=== PATIENT | female | born 1935 | race Caucasian/White ===

== ENCOUNTER → 2022-01-09 | Outpatient (CLI) | payer MEDICARE, OTHER | LOC: M LABSMTC 09:34 | PROVIDERS: ATTEND Anesthesiology | DX: Z01.818 Encounter for other preprocedural examination (principal); Z11.52 Encounter for screening for COVID-19 ==

== ENCOUNTER 2022-01-12 06:00 | Day surgery (SDC) | payer MEDICARE, OTHER ==
[~2022-01-12] VITALS: Ht 152.4 cm; Wt 43.9 kg
[~2022-01-12 06:00] MED LIST: CYCLOPENTOLATE 1% OPHTH SOLN 2 ML BTL OD SCH; FLURBIPROFEN 0.03% OPHTH SOLN 2.5 ML OD SCH; PHENYLEPHRINE 2.5% OPHTH SOL 2ML OD SCH; TETRACAINE 0.5% OPHTH SOLN 4ML OD SCH
[2022-01-12] MEDS ORDERED: MAXITROL OPHTH SUSP 5 ML As Ordered ONE (06:29)
[2022-01-12] MEDS ORDERED: LIDOCAINE 1% SDV 5ML VIAL As Ordered ONE (06:29)
[2022-01-12] MEDS ORDERED: LR 1,000 ML IV SCH (07:00)
[2022-01-12] MEDS ORDERED: fentaNYL 100 MCG/2 ML INJECTION As Ordered ONE (08:20)
[2022-01-12] MEDS ORDERED: MIDAZOLAM INJ 2MG/2ML VIAL (J2250 PER 1MG) As Ordered ONE (08:20)
[2022-01-12 09:06] VITALS: BP 161/65
== END 2022-01-12 09:26 | disposition home or self-care (01) ==
LOC: M SDC 06:00
PROVIDERS: ATTEND Ophthalmology
DX: H25.11 Age-related nuclear cataract, right eye (principal); R21 Rash and other nonspecific skin eruption
CPT/HCPCS: 66984; J2250; J3010; V2787